=== PATIENT | male | born 1970 | race Two or more races ===

== ENCOUNTER 2017-02-16 11:30 | Emergency (ER) | payer OTHER ==
[~2017-02-16] VITALS: Ht 182.9 cm; Wt 79.4 kg
[2017-02-16] MEDS ORDERED: IBUPROFEN 600 MG TABLET PO ONE (14:00)
--- NOTE | 2017-02-16 17:02 | NUR ---
Patient discharged to home in stable conditon. Written and verbal after care instructions given. Patient verbalizes understanding of instructions.
[2017-02-16] MEDS ORDERED: IBUPROFEN 600 MG TABLET ONE (17:04)
== END 2017-02-16 17:03 | disposition home or self-care (01) ==
LOC: ER 11:32
DX: S83.92XA Sprain of unspecified site of left knee, initial encounter (principal); X50.9XXA Other and unspecified overexertion or strenuous movements or postures, initial encounter; Y93.89 Activity, other specified; Y92.69 Other specified industrial and construction area as the place of occurrence of the external cause; Y99.0 Civilian activity done for income or pay
CPT/HCPCS: A4663